=== PATIENT | female | born 1995 | race Caucasian/White ===

== ENCOUNTER 2016-06-04 15:43 | Emergency (ER) | payer OTHER ==
[2016-06-04 16:13] VITALS: BP 110/69; PULSE 93; RESP 16; TEMP 98.1; O2SAT 98
[2016-06-04] MEDS ORDERED: LETS SOLN TOPICAL 1 EA SYR TP ONE (16:39)
--- NOTE | 2016-06-04 16:54 | UCPHY ---
H & P Time Seen by Provider: 06/04/16 16:27 Patient Type: New HPI/ROS: This patient was cutting potatoes shortly prior to arrival when she sustained a laceration to her left 3rd finger distal phalanx with mild pain and bleeding. She proceeded to climb on top of her skein yarn drier to reach out for the gauze for the finger and developed lightheadedness had a syncopal episode. She then struck her scalp on the bathroom counter a fall from the skein yarn drier and awakened shortly thereafter with a laceration to her head. She reports that she had a very brief headache and nausea since resolved. The incident occurred at 2:45 a.m. in her home. She was driven here by her aunt. At the moment other than the localized pain from the scalp laceration finger laceration she has no lingering symptoms. ROS: No constitutional symptoms prior to the episode. HEENT: No headache currently. No visual changes. Musculoskeletal: No neck or back pain pulmonary : No chest wall pain or shortness of breath. Cardiovascular: No heart palpitations. GI: She had brief nausea earlier now resolved. Neuro: No focal numbness tingling or weakness. No confusion. 10 point ROS is otherwise negative. Past Medical/Surgical History: Otherwise healthy Smoking Status: Never smoked Physical Exam: Physical exam: Vital signs are normal General: Patient is in no acute distress. HEENT: The patient has a 5 cm full-thickness laceration (the galea is intact) to the right parietal region with mild bleeding. No underlying hematoma. Eyes: Pupils are equal and reactive to light. Extraocular motions are intact. Nose atraumatic. Ears: Clear bilaterally with no hemotympanum. Oropharynx: No dental trauma or malocclusion. No intraoral lacerations. Neck: Trachea is midline with no stridor. The patient has no midline neck tenderness and retains a full range of motion without increase in pain. Lungs: Clear to auscultation bilaterally Cardiac: Regular rate and rhythm no murmur gallop or rub. Chest: Nontender. Abdomen: Soft nontender no organomegaly Back: Nontender Extremities: Atraumatic except for left 3rd finger Left 3rd finger: Patient has a full-thickness laceration of the distal phalanx 1 cm with minimal bleeding. Neuro: GCS of 15. Cranial nerves II through XII intact. 3 out of 3 five- minute memory is intact. Cerebellar exam is normal as judged by symmetric rapid hand movements bilaterally. No pronator drift. No sensory or motor deficits are appreciated. Initial differential diagnosis: Scalp laceration, finger laceration, minor head injury, doubt concussion, vasovagal syncope Constitutional: Initial Vital Signs Temperature (C) 36.7 C 06/04/16 16:07 Heart Rate 93 06/04/16 16:07 Respiratory Rate 16 06/04/16 16:07 Blood Pressure 110/69 06/04/16 16:07 O2 Sat (%) 98 06/04/16 16:07 O2 Delivery Mode Room Air Allergies/Adverse Reactions: azithromycin Allergy (Verified 06/04/16 16:13) Home Medications: Medication Instructions Recorded NK [No Known Home Meds] 06/04/16 MDM/Departure - MDM Procedures: Digital block: After verbal consent using chlorhexidine scrub followed by 27 gauge needle, a 6 mL of 50 50 mix 0.5% Marcaine 2% plain lidocaine 3 injections the proximal finger with good effect with no complications The scalp wound is 5 cm. The wound was copiously irrigated with saline. The wound was explored for foreign bodies and none were found. The galea is intact. The wound was prepped and draped in the normal sterile fashion. The wound was anesthetized using let solution followed by 1% plain lidocaine with epi, with sodium bicarb buffer-4 miles a 27 gauge needle with good effect.. The edges were reapproximated using 4 0 Prolene on a PC 3 needle-13 running sutures with good hemostasis and cosmesis. The patient tolerated the procedure well. There were no complications The wound is 1.3 cm to the distal phalanx of the left 3rd finger. The wound was copiously irrigated with saline. The wound was explored for foreign bodies and none were found. The wound was prepped and draped in the normal sterile fashion. The wound was anesthetized using digital block as indicated above. The edges were reapproximated using 2 interrupted sutures and 3 running sutures using 4 0 Ethilon with good hemostasis and cosmesis. The patient tolerated the procedure well. No complications. She is placed in tube gauze thereafter. Medications Given: Discontinued Medications Tetracaine/Epinephrine/Lidocaine (Lets Soln Topical) 1 ea TP EDNOW ONE Stop: 06/04/16 16:40 Last Admin: 06/04/16 16:52 Dose: 1 ea ED Course/Re-evaluation: Discussion: Patient here with finger laceration followed by vasovagal syncope and scalp laceration. The patient exercised earlier in the day so likely had an element of dehydration contributing to her vasovagal syncope. She orally rehydrate prior to arrival here. Despite the head injury she has no concerning findings on workup to indicate significant concussion or intracranial bleed. She also has no cardiac symptoms of concern. She appears well clinically he while here. Mental status is normal - Depart Disposition: Home, Routine, Self-Care Clinical Impression: Vasovagal syncope Scalp laceration Qualifiers: Encounter type: initial encounter Qualifier Code: (S01.01XA) Laceration without foreign body of scalp, initial encounter Finger laceration Qualifiers: Encounter type: initial encounter Qualifier Code: (S61.219A) Laceration without foreign body of unspecified finger without damage to nail, initial encounter Condition: Good Instructions: Syncope (ED), Care For Your Stitches (ED), Head Injury (ED) Additional Instructions: Diagnoses: 1. Finger laceration 2. Vasovagal syncope 3. Scalp laceration 4. Minor head injury Plan: Tylenol and ibuprofen for pain as needed Keep the wounds clean and dry for the next 2 days. Then clean daily with warm soapy water Return for suture removal from the scalp in 5-7 days, suture removal from the finger in 10-12 days Good the emergency department if he develops unbearable headache, vomiting more than once, confusion or other concerning findings. Referrals: NONE *PRIMARY CARE P,. [Primary Care Provider] - As per Instructions - PQRS PQRS Measurement: NA
== END 2016-06-04 19:00 | disposition home or self-care (01) ==
LOC: CED 15:43
PROC: 0HQ0XZZ Repair Scalp Skin, External Approach (ICD-10-PCS; principal; 2016-06-04)
PROC: 0HQGXZZ Repair Left Hand Skin, External Approach (ICD-10-PCS; 2016-06-04)
DX: S61.213A Laceration without foreign body of left middle finger without damage to nail, initial encounter (principal); S01.01XA Laceration without foreign body of scalp, initial encounter; R55 Syncope and collapse; W26.0XXA Contact with knife, initial encounter
CPT/HCPCS: 12002-PO; 99203-PO; G0463-PO

== ENCOUNTER 2016-09-08 17:41 | Emergency (ER) | payer OTHER ==
[2016-09-08 17:48] VITALS: BP 95/60; PULSE 66; RESP 16; O2SAT 98
== END 2016-09-08 17:45 | disposition left against medical advice (07) ==
LOC: CED 17:41
DX: Z53.21 Procedure and treatment not carried out due to patient leaving prior to being seen by health care provider (principal)

== ENCOUNTER 2016-09-11 10:59 | Emergency (ER) | payer OTHER ==
[2016-09-11 11:12] VITALS: BP 93/70; PULSE 66; RESP 18; TEMP 98; O2SAT 99
--- NOTE | 2016-09-11 11:18 | EDPHY ---
H & P Stated Complaint: rash since Sun- had blood work and strep done @ Sunday Time Seen by Provider: 09/11/16 11:18 HPI/ROS: CHIEF COMPLAINT: Persistent rash HISTORY OF PRESENT ILLNESS: The patient presents to the ED secondary to persistent rash. She developed a rash on her trunk and back on . She was seen at urgent care and was tested for strep and Kempner spotted fever. She was told to take Benadryl without improvement. The patient denies that the rash is pruritic. The patient denies additional complaints. She has no new food exposures. She has not been camping recently. The patient denies significant past medical history. The patient denies recent illness. REVIEW OF SYSTEMS: A comprehensive 10 point review of systems is otherwise negative aside from elements mentioned in the history of present illness. Source: Patient - Personal History LMP (Females 10-55): 15-21 Days Ago Current Tetanus Diphtheria and Acellular Pertussis (TDAP): Yes - Medical/Surgical History Other PMH: PCP NONE. Tetanus UTD. FLu vacc . denie medsurg - Social History Smoking Status: Never smoked - Physical Exam Exam: General Appearance: Alert, no distress Eyes: Pupils equal and round no pallor or injection ENT, Mouth: Mucous membranes moist Respiratory: There are no retractions, lungs are clear to auscultation Cardiovascular: Regular rate and rhythm Gastrointestinal: Abdomen is soft and nontender, no masses, bowel sounds normal Neurological: A&O, normal motor function, normal sensory exam, normal cranial nerves Skin: Papular rash chest and back, no hives, no herald patch Musculoskeletal: Neck is supple nontender Extremities: symmetrical, full range of motion Constitutional: Initial Vital Signs Temperature (C) 36.6 C 09/11/16 11:10 Heart Rate 66 09/11/16 11:10 Respiratory Rate 18 09/11/16 11:10 Blood Pressure 93/70 L 09/11/16 11:10 O2 Sat (%) 99 09/11/16 11:10 O2 Delivery Mode Room Air Allergies/Adverse Reactions: azithromycin Allergy (Verified 09/08/16 17:42) Home Medications: Medication Instructions Recorded predniSONE [prednisone 20mg (RX)] 3 tab PO DAILY #15 tab 09/11/16 Medical Decision Making ED Course/Re-evaluation: The patient presents to the ED with a papular rash of uncertain etiology. There is nothing to suggest a systemic infection. The patient is well- appearing. It does not appear to be allergic phenomenon. I will start the patient on prednisone for the next 5 days. I would like her to follow up with a lab instructor for a recheck. She is advised to return to the ED for fever, markedly worsening symptoms or other concerns. Departure - Departure Disposition: Home, Routine, Self-Care Clinical Impression: Rash Condition: Good Instructions: Acute Rash (ED) Additional Instructions: 1. Please take prednisone as directed for next 5 days. 2. Please return to the ED for fever, pain, worsening symptoms or other concerns. 3. Please schedule a follow-up appointment with a lab instructor for any unimproved symptoms. You have been given the telephone number of a few local dermatologists. Referrals: Atul Medeiros MD [Medical Doctor] - As per Instructions Magdaleno Soto MD [Medical Doctor] - As per Instructions Sumi Elliott MD [Medical Doctor] - As per Instructions
== END 2016-09-11 11:44 | disposition home or self-care (01) ==
LOC: CED 10:59
DX: R21 Rash and other nonspecific skin eruption (principal)